=== PATIENT | male | born 1950 | race Caucasian/White ===

== ENCOUNTER 2024-11-27 06:25 | Day surgery (SDC) | payer MEDICARE, OTHER, SELFPAY | END 2024-11-27 13:08 | disposition home or self-care (01) | LOC: GI 06:25 | PROVIDERS: ATTENDING PHYSICIAN Internal Medicine; FAMILY PHYSICIAN Family Medicine | DX: R13.10 Dysphagia, unspecified (principal); K44.9 Diaphragmatic hernia without obstruction or gangrene; K31.89 Other diseases of stomach and duodenum; J39.2 Other diseases of pharynx | CPT/HCPCS: 43239; 88305; 88342 ==